=== PATIENT | female | born 1970 ===

== ENCOUNTER 2017-01-20 10:19 | Day surgery (SDC) | payer MEDICAID ==
[2017-01-18 14:34] VITALS: BMI 22.6
[2017-01-20 11:08] LABS: ADD MANUAL DIFF? NO
[2017-01-20 11:18] LABS: BASO # 0.04 K/mm3 (0.0-2.0); BASO % 0.7 % (0.0-3.0); EOS # 0.3 (0.0-0.7); EOS % 5.7 % (1.5-5.0); GRAN # 3.52 (1.4-6.5); LYMPH # 1.7 (1.2-3.4); LYMPH % 29.1 % (22.0-35.0); MEAN CELL VOLUME 89.1 fL (80.0-105.0); MEAN CORPUSCULAR HEMOGLOBIN 29.5 pg (25.0-35.0); MEAN CORPUSCULAR HGB CONC 33.1 g/dl (31.0-37.0); MEAN PLATELET VOLUME 9.4 fl (7.0-11.0); MONO # 0.3 (0.1-0.6); MONO % 5.5 % (1.0-6.0); PLATELET COUNT 354 10^3/uL (120.0-450.0)
[2017-01-20 11:25] LABS: INR 0.92 (0.93-1.08); PARTIAL THROMBOPLASTIN TIME 27.1 Seconds (23.7-30.8)
[2017-01-20 11:26] LABS: BLOOD UREA NITROGEN 15 mg/dL (7-21); CALCIUM 9.3 mg/dL (8.4-10.5); CARBON DIOXIDE 29 mmol/L (21-33); CHLORIDE 102 mmol/L (98-107); GFR AFRICAN-AMERICAN > 60; GLUCOSE,RANDOM 95 mg/dL (70-110); POTASSIUM 3.9 mmol/L (3.6-5.0); SODIUM 139 mmol/L (132-148)
--- NOTE | 2017-01-20 11:34 | CP.SDSHP ---
Same Day Surgery H & P - History Proposed Procedure: Insertion of venous port Pre-Op Diagnosis: Breast Ca - Previous Medical/Surgical History Cardiac: Hypertension Pain: 0. No Pain Comments: LMP 01/16/17. Pt needs venous port inserted for chemotherapy Previous Surgical History: C Section. L Breast biopsy - Allergies Allergies: Allergies No Known Allergies Allergy (Verified 01/18/17 14:34) - Physical Exam General Appearance: Well nourished female Vital Signs: Vital Signs 01/20/17 10:40 Temperature 97.3 F L Pulse Rate 92 H Respiratory 18 Rate Blood Pressure 145/86 O2 Sat by Pulse 98 Oximetry Mental Status: Alert & Oriented x3 Neuro: WNL Heart: WNL Lungs: WNL - {Optional Preform as Required} Breast: Other (Small lump,about1/2"diameter, palpable in the L breast) Abdomen: WNL Integument: WNL - Impression Impression: L Breast Ca - Date & Time Date: 01/20/17 Time: 11:28 Short Stay Discharge - Short Stay Discharge Admitting Diagnosis/Reason for Visit: BREAST CA C50.919
[2017-01-20] MEDS ORDERED: Lidocaine 2% Inj (20ml) ONE (12:29)
[2017-01-20] MEDS ORDERED: Midazolam 2 MG/2 ML VIAL ONE (13:56)
[2017-01-20] MEDS ORDERED: Oxycodone/Acetaminophen 5/325 mg Tab PO PRN (15:09)
[2017-01-20] MEDS ORDERED: Sodium Chloride 0.45% 1,000 ML IV SCH (15:15)
[2017-01-20 15:45] VITALS: O2SAT 99
[2017-01-20 15:57] VITALS: RESP 20; TEMP 98
[2017-01-20 16:23] VITALS: BP 117/72; PULSE 72
--- NOTE | 2017-01-20 17:06 | VASCULAR ---
PROCEDURE: Ultrasound and fluoroscopic right internal jugular venous access port. CLINICAL HISTORY: Breast carcinoma.Venous port for chemotherapy. PHYSICIAN(S): Cornel Mckee M.D. TECHNIQUE: The relative risks and indications of the procedure were explained to the patient and consent obtained. The patient was placed supine on the arteriogram table and the right neck and chest prepped and draped in the usual sterile fashion. Conscious sedation monitoring was provided throughout the procedure by a nurse. Antibiotics were given prior to the procedure. Under direct ultrasound guidance, the right internal jugular vein was punctured with a micro-puncture set. A 0.035 angled Glidewire was advanced into the IVC. A 4 cm incision was just below the right clavicle and the pocket blunted dissected. A 8 [place] single-lumen catheter, 20 cm long, was advanced to the SVC/RA junction. The catheter was trimmed and attached to the port. The port aspirates and injects easily. The port was placed in the pocket and closed in 2 layers. The patient tolerated the procedure well. IMPRESSION: Ultrasound and fluoroscopically placed right internal jugular venous access port.
== END 2017-01-20 16:45 | disposition home or self-care (01) ==
LOC: SDSVAS 10:19 → OR 10:19 → SDSVAS 16:45
PROVIDERS: ATTEND Radiology Vascular & Interventional Radiology
DX: C50.912 Malignant neoplasm of unspecified site of left female breast (principal); I10 Essential (primary) hypertension
CPT/HCPCS: 36415; 36561; 76937; 77001; 80048; 85025; 85610; 85730; 99152; 99153; C1769; C1788; C1887; J0690; J1644; J2250; J2405; J3010; J7030